=== PATIENT | male | born 1960 | race Caucasian/White ===

== ENCOUNTER 2022-08-04 11:55 | Outpatient (CLI) | payer OTHER, SELFPAY ==
--- NOTE | ~2022-08-04 | XR_ITS ---
AP and lateral views of the left hip Clinical history: Pain Findings: No acute fracture or dislocation is seen. Osseous alignment is anatomic. Left hip joint spa ce is preserved, with minimal degenerative spurring. Soft tissues are unremarkable. Impression: Minimal degenerative change left hip joint. No acute fracture or dislocation seen. Reviewed, dictated and finalized at [facility]. 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 No acute fracture or dislocation seen.
--- NOTE | ~2022-08-04 | XR_ITS ---
Lumbosacral Spine: AP and lateral views Clinical History: Pain Findings: The normal lordotic curve is maintained. The vertebral bodies and posterior elements are i ntact. The intervertebral disc spaces are preserved. Extensive anterior marginal osteophytes are pre sent. Probable mild facet joint degenerative changes in the lumbar spine. The sacroiliac joints are n ormally outlined. Impression: Probable mild facet joint degenerative changes. Extensive anterior osteophyte formation. Reviewed, dictated and finalized at location M. 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 Extensive anterior osteophyte formation.
--- NOTE | ~2022-08-04 | XR_ITS ---
AP and lateral views of the right hip Clinical history: Pain Findings: No acute fracture or dislocation is seen. Osseous alignment is anatomic. There is minimal o steophyte formation at the right hip joint. Joint space itself is preserved. Soft tissues are unremar kable. Impression: Minimal degenerative change of the right hip joint. Reviewed, dictated and finalized at location . 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
== END 2022-08-04 11:56 | disposition home or self-care (01) ==
PROVIDERS: PCP Internal Medicine; Visit Provider Internal Medicine
DX: M54.50 Low back pain, unspecified (principal); M25.78 Osteophyte, vertebrae
CPT/HCPCS: 72100; 73502

== ENCOUNTER 2022-08-21 07:41 | Outpatient (RCR) | payer OTHER, SELFPAY ==
--- NOTE | 2022-08-21 08:23 | PTOPEVAL1 ---
Assessment and note entered by Dany Hernandez Evaluation Information Assessment Status Evaluation Diagnosis lumbar radiculopathy Onset 08/04/22 Subjective Information Pt. does not recall an initial injury. 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 He describes pain going across the back and into the buttock. He reports pain will shoot down into both legs. He reports that pain is most notable with long periods of sitting and standing. He reports that pain will wake him at night. He reports that he gets about 5-6 hours of sleep a night. He reports that his goal for therapy is to decrease his pain . Reported Pain Level Pain Score 5: Self Report Assessment PT Clinical Summary Pt. is a 61 old male who enters the clinic with lumbar radiculopathy. He presents with impaired postural awareness, impaired gait, impaired l.e. strength and pain on this date. continued treatment is indicated in order to improve these areas to allow the pt. to be able to complete all IADL's with improved comfort and efficiency. Plan of Care Interventions Electrical Stimulation,Hot Pack/Cold Pack,Manual Therapy,Mechanical Traction,Neuro Re-education, Therapeutic Activities,Therapeutic Exercise,Self- Care/Home Management PT Services Indicated Yes Treatment Frequency and 2x/week x 10 visits Duration These treatments will address the objective and functional deficits as defined above. The patient will be advanced safely and appropriately in order for the patient to progress towards his/her prior level of function. Additional exercises will be introduced and as well as a comprehensive home exercise program upon discharge, if needed, ?to ensure carryover of functional gains achieved in the clinic. This treatment plan has been reviewed and agreement upon by the patient.
--- NOTE | 2022-09-25 10:56 | PTOPREEVAL ---
Assessment and note entered by Ledy Brown DPT Evaluation Information Assessment Status Re-evaluation Diagnosis lumbar radiculopathy Onset 08/04/22 Subjective Information Patient reports that since starting PT his pain is better. He states he continues to have pain with prolonged sitting and standing but does report it takes longer to set it. He does report he is able to sleep a little bit longer without onset of pain . He reports overall pain is less intense. Reported Pain Level Pain Score 3: Self Report Assessment PT Clinical Summary Patient has been for 10 visits from 08/21/22-. He has made good progress towards goals but still lacks LE strength and lumbar ROM. He has improvement with prolonged sitting and standing as well as sleeping but with increased times he has onset of pain. He reports less frequent and intense pain at this time. He would continue to benefit from skilled PT to address impairments and return to PLOF. Plan of Care Interventions Electrical Stimulation,Hot Pack/Cold Pack,Manual Therapy,Mechanical Traction,Neuro Re-education, Therapeutic Activities,Therapeutic Exercise,Self- Care/Home Management PT Services Indicated Yes Treatment Frequency and 2x/week x 8 visits Duration These treatments will address the objective and functional deficits as defined above. The patient will be advanced safely and appropriately in order for the patient to progress towards his/her prior level of function. Additional exercises will be introduced and as well as a comprehensive home exercise program upon discharge, if needed, ?to ensure carryover of functional gains achieved in the clinic. This treatment plan has been reviewed and agreement upon by the patient.
--- NOTE | 2022-12-07 16:23 | PCPTNOTE ---
Patient is being discharged at this time due to not showing up for follow up appointment
== END 2022-10-03 18:00 | disposition home or self-care (01) ==
LOC: CHSPT 07:41
PROVIDERS: PCP Internal Medicine; Visit Provider Internal Medicine
DX: M54.16 Radiculopathy, lumbar region (principal)
CPT/HCPCS: 97014; 97110; 97112; 97140; 97161; G0283

== ENCOUNTER 2024-02-11 05:58 | Day surgery (SDC) | payer OTHER, SELFPAY ==
[2024-01-15 09:06] VITALS: BMI 39.8
[2024-01-31 08:03] VITALS: BMI 37.5
[2024-02-11 06:28] VITALS: BMI 38.7
--- NOTE | 2024-02-11 06:46 | WPDANESEPPF ---
Anes - Initial Pre Proc Eval Procedure: Operation Date: 02/11/24 07:30 Proposed Procedures p Diagnostic Colonoscopy - Gee Dutton DO Date/Time: 02/11/24 06:46 Surgeon: Gee Dutton DO Pre Op Diagnosis: Blood in stool Patient Data Age: 63 Gender: M Height: 1.85 m Weight: 133.2 kg Allergies Allergy/AdvReac Type Severity Reaction Status Date / Time IVP dye Allergy Intermediate Rash Uncoded 02/11/24 06:24 Sulfonamides Allergy Intermediate Rash Uncoded 02/11/24 06:24 Home Medications Medication Instructions Recorded Confirmed Type allopurinol 100 mg tablet 100 mg PO BID 01/17/24 02/11/24 History felodipine 5 mg tablet,extended 5 mg PO HS 01/17/24 02/11/24 History release 24 hr Patient hx anesthesia problems: none Family hx anesthesia problems: none Results Review: All pre-operative results and documents have been reviewed as part of the pre-operative evaluation. [facility] Past Medical History Medical History (Updated 01/17/24 @ 10:16 by Kimber Lopez) Gout Hypertension Surgical History Surgical History (Updated 01/17/24 @ 10:00 by Alice Cazares CMA) H/O cataract extraction H/O left inguinal hernia repair Family History Family History Father Lung cancer Social History Social History (Updated 01/17/24 @ 09:49 by Alice Cazares CMA) Smoking status: Never smoker Alcohol intake: current Substance use: never Substance use type: does not use Do You Feel Safe in your Home?: Yes Lack of Transportation: No Lack of Food: Never True Current Housing: I Have Housing Concerned About Future Housing: No Difficulty Paying Gas/Electric Bills: No Difficulty Paying for Meds: No Currently Unemployed: No Education: Trade/Vocational Certificate Difficulty w/ Childcare or Family Care: No Living arrangements: with family Occupation/Education: occupation 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 Gender identity (if verbalized by the patient): Male Spiritual care concerns: No Anes - Eval Final PreProcedure Day of Procedure 02/11/24 06:46 Patient weight: obese Heart: regular rate and rhythm Lungs: clear to auscultation Airway: Mallampati scale class III and special considerations poor dentition Neurological: alert and oriented Last oral intake: >/= 8 hours ASA classification: III Emergent: no Anesthetic plan: proceed Anesthesia type and monitoring: general GIVS and standard monitoring Results Review: All pre-operative results and documents have been reviewed as part of the pre-operative evaluation. Informed Consent: The patient's anesthetic plan and its attendant risks and benefits were discussed with the patient/family/POA. Questions were solicited and answers provided to the satisfaction of the patient/family/POA.
[2024-02-11 06:49] VITALS: BP 153/90; PULSE 63; RESP 15; TEMP 36.4; O2SAT 99
[2024-02-11] MEDS: LACTATED RINGERS 1,000 ML 150 ML IV CONT (06:58)
--- NOTE | 2024-02-11 07:23 | PM.IMHP ---
H&P: HPI History of Present Illness Date/Time: 02/11/24 07:23 Chief Complaint: Blood in stool Narrative: 63 yo man presents for colonoscopy. He has a recent screening test that was positive. He thinks it was a Cologuard test. He had a colonoscopy 20 years ago that was normal. Denies seeing blood in stool. Denies fam hx colon cancer. Review of Systems Review of Systems: All systems reviewed & are unremarkable except as noted in HPI and below Constitutional: Constitutional: Denies chills, Denies fever(s), Denies headache(s) and Denies weight loss Eyes: Eyes: Denies change in vision ENT: Denies dizziness, Denies headache(s), Denies neck mass and Denies throat swelling Cardiovascular: Cardiovascular: Denies chest pain, Denies lightheadedness and Denies dyspnea Respiratory: Respiratory: Denies cough, Denies dyspnea and Denies wheezing Gastrointestinal: Gastrointestinal: Denies abdominal pain, Denies change in bowel habits, Denies nausea and Denies vomiting Genitourinary: Genitourinary: Denies hematuria and Denies dysuria Musculoskeletal: Musculoskeletal: Reports as per HPI Integumentary/Breasts: Skin/Breast: Reports as per HPI Neurologic: Denies dizziness and Denies headache(s) Allergic/Immunologic: Allergic/Immunologic: Denies throat swelling and Denies wheezing [facility] Past Medical History Medical History (Updated 02/11/24 @ 07:24 by Gee Dutton DO) Gout Hypertension Surgical History Surgical History (Updated 01/17/24 @ 10:00 by Alice Cazares CMA) H/O cataract extraction H/O left inguinal hernia repair Family History Family History Father Lung cancer Social History Social History (Updated 01/17/24 @ 09:49 by Alice Cazares CMA) Smoking status: Never smoker Alcohol intake: current Substance use: never Substance use type: does not use Do You Feel Safe in your Home?: Yes Lack of Transportation: No Lack of Food: Never True Current Housing: I Have Housing Concerned About Future Housing: No Difficulty Paying Gas/Electric Bills: No Difficulty Paying for Meds: No Currently Unemployed: No Education: Trade/Vocational Certificate Difficulty w/ Childcare or Family Care: No Living arrangements: with family Occupation/Education: occupation 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 Gender identity (if verbalized by the patient): Male Spiritual care concerns: No Meds Home Medications and Allergies Home Medications Medication Instructions Recorded Confirmed Type allopurinol 100 mg tablet 100 mg PO BID 01/17/24 02/11/24 History felodipine 5 mg tablet,extended 5 mg PO HS 01/17/24 02/11/24 History release 24 hr Allergies Allergy/AdvReac Type Severity Reaction Status Date / Time IVP dye Allergy Intermediate Rash Uncoded 02/11/24 06:24 Sulfonamides Allergy Intermediate Rash Uncoded 02/11/24 06:24 Vital Signs Vital Signs - 24 hr 02/11/24 06:49 Temperature 36.4 C Pulse Rate 63 Respiratory Rate 15 Blood Pressure 153/90 H Pulse Oximetry 99 Oxygen Delivery Room Air Exam Const: General: no acute distress and alert Orientation/consciousness: patient oriented x3 HENMT: Head: normocephalic and atraumatic Ears: hearing grossly normal bilaterally Face/Nose/Sinus: Normal nares present Mouth: Yes Normal oral and palatal mucosa present Eyes: Periorbital: periorbital findings normal Sclera: sclerae normal EOM: EOMs intact bilaterally Neck: Neck: normal visual inspection, no lymphadenopathy and trachea midline Chest: Chest palpation & inspection: normal inspection of the chest Resp: Effort & Inspection: normal respiratory effort Auscultation: clear to auscultation bilaterally Cardio: Jugular venous distension: no JVD Rate: regular rate Rhythm: regular rhythm Heart sounds: S1 normal heart sound present and S2 normal heart sound present Peripheral pulses: P
[2024-02-11 07:48] VITALS: BP 124/60; PULSE 63; RESP 16; O2SAT 93
[2024-02-11 07:58] VITALS: BP 124/75; PULSE 63; RESP 18; O2SAT 98
[2024-02-11 08:08] VITALS: BP 131/80; PULSE 60; RESP 18; O2SAT 97
--- NOTE | 2024-02-11 08:32 | WPDANESPN ---
Anes - Prog Note Post-Op Date/Time: 02/11/24 08:32 Cardiovascular status: normal Respiratory status: normal Airway patency: baseline Mental status: baseline Post-Op hydration status: normal Vital Signs: Last Vital Signs Temp 36.4 C 02/11/24 06:49 Pulse 60 02/11/24 08:08 Resp 18 02/11/24 08:08 BP 131/80 02/11/24 08:08 Pulse Ox 97 02/11/24 08:08 O2 Del Method Room Air 02/11/24 08:08 Pain Score (VAS): 0 I/O: Intake & Output 02/10/24 02/11/24 02/11/24 23:59 07:59 15:59 Intake Total 550 Balance 550 Post-procedural complaints: none Patient Feedback: Patient satisfied with anesthetic care. Other Findings: Patient vital signs back to baseline. Patient denies nausea and vomiting. Patient's pain under control. Patient OK for discharge.
== END 2024-02-11 08:20 | disposition home or self-care (01) ==
PROVIDERS: PCP Internal Medicine; Visit Provider Surgery
PROC: 0DJD8ZZ Inspection of Lower Intestinal Tract, Via Natural or Artificial Opening Endoscopic (ICD-10-PCS; CPT 45378; principal; 2024-02-11 07:30)
DX: K92.1 Melena (principal); D12.8 Benign neoplasm of rectum; K57.30 Diverticulosis of large intestine without perforation or abscess without bleeding
CPT/HCPCS: 45380

== ENCOUNTER 2024-02-12 08:49 | Outpatient (NON) | payer OTHER, SELFPAY | END 2024-02-12 08:50 | disposition home or self-care (01) | PROVIDERS: PCP Internal Medicine; Visit Provider Surgery | DX: K92.1 Melena (principal); K63.5 Polyp of colon | CPT/HCPCS: 88305 ==

== ENCOUNTER 2025-07-01 11:14 | Emergency (ER) | payer BC, SELFPAY ==
--- NOTE | ~2025-07-01 | CT_ITS ---
CT ABDOMEN AND PELVIS WITHOUT CONTRAST Clinical History: Diverticulitis, kidney stone, constipation Comparison: None Technique: Unenhanced axial images lung bases to symphysis pubis Coronal, sagittal reformats CT images acquired with automatic exposure control for dose reduction DLP: 1058 mGy-cm Findings: Without intravenous contrast, sensitivity for detecting visceral parenchymal abnormalities decreased. Lung bases: Mediastinal and hilar calcifications. Visualized heart and pericardium: Unremarkable. Liver: Unremarkable. Gallbladder: Unremarkable. Spleen: Unremarkable. Pancreas: Unremarkable. Adrenal glands: Unremarkable. Kidneys: Right kidney- Hydronephrosis. A few stones, largest 9 mm. 6 mm stone distal ureter. Left kidney- No hydronephrosis. No renal stones. Several large cortical defects. Upper pole cyst. Distal esophagus/stomach: Distal esophageal wall thickening. Small bowel loops: Normal caliber and wall thickness. Colon: Foci sigmoid wall thickening. Diverticula. Normal RLQ appendix. Nodes: No enlarged nodes. Peritoneum: No ascites. No free intraperitoneal air. Urinary bladder: Unremarkable. Prostate: Prominent. Bones: No acute bony abnormality. Soft tissues: Right inguinal hernia with fat. Unopacified abdominal aorta: No aneurysmal dilatation. IMPRESSION: 1. Sigmoid wall thickening likely chronic diverticular disease but recommend colonoscopy to exclude lesion. No diverticulitis. 2. Hydronephrosis right kidney from 6 mm distal ureteral stone. Additional intrarenal stones right kidney. 3. Additional findings as above. Reviewed, dictated and finalized at location R. [facility] MA[facility] IMPRESSION: 1. Sigmoid wall thickening likely chronic diverticular disease but recommend c olonoscopy to exclude lesion. No diverticulitis. 2. Hydronephrosis right kidney from 6 mm distal ureteral stone. Additional int rarenal stones right kidney. 3. Additional findings as above.
[2025-07-01 11:16] VITALS: BP 149/95; PULSE 69; RESP 18; TEMP 36.4; O2SAT 97
--- NOTE | 2025-07-01 11:28 | ED.ABDPAIN ---
HPI - Abdominal Pain General Chief Complaint: Urogenital-Male Stated Complaint: rt. side flank pain Time Seen by Provider: 07/01/25 11:28 Source: patient and family Mode of arrival: ambulatory Limitations: no limitations History of Present Illness HPI narrative: Abdominal pain, dull aching, intermittent for the last 2 days, mid abdomen, sometime radiating to right flank, possible constipation, received stool softener with good bowel movement yesterday and pain is back again today, patient denies any fever, chills, nausea, vomiting. History of hypertension and kidney stone. Patient had ibuprofen prior to arrival. Related Data Home Medications ?Medication ?Instructions ?Recorded ?Confirmed ?Last Taken ?Type allopurinol 100 mg tablet 100 mg PO BID 01/17/24 02/11/24 02/09/24 History felodipine 5 mg tablet,extended 5 mg PO HS 01/17/24 02/11/24 02/10/24 20:00 History release 24 hr Allergies Allergy/AdvReac Type Severity Reaction Status Date / Time IVP dye Allergy Intermediate Rash Uncoded 07/01/25 11:22 Sulfonamides Allergy Intermediate Rash Uncoded 02/11/24 06:24 Review of Systems Review of Systems: All systems reviewed & are unremarkable except as noted in HPI and below PMFSH Past Medical History Medical History Hypertension Gout Surgical History Surgical History H/O cataract extraction H/O left inguinal hernia repair Family History Family History Father Lung cancer Social History Social History Smoking status: Never smoker Alcohol intake: current Substance use: never Substance use type: does not use Lack of Transportation: No Lack of Food: Never True Current Housing: I Have Housing Concerned About Future Housing: No Difficulty Paying Gas/Electric Bills: No Difficulty Paying for Meds: No Currently Unemployed: No Education: Trade/Vocational Certificate Difficulty w/ Childcare or Family Care: No Living arrangements: with family Occupation/Education: occupation 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, no gross motor deficit Course Vital Signs Vital signs: Vital Signs Temperature 36.4 C 07/01/25 11:16 Pulse Rate 69 07/01/25 11:16 Respiratory Rate 18 07/01/25 11:16 Blood Pressure 149/95 H 07/01/25 11:16 Pulse Oximetry 97 07/01/25 11:16 Oxygen Delivery Room Air 07/01/25 11:16 Temperature 36.7 C 07/01/25 13:36 Pulse Rate 68 07/01/25 13:36 Respiratory Rate 17 07/01/25 13:36 Blood Pressure 149/83 H 07/01/25 13:36 Pulse Oximetry 99 07/01/25 13:36 Oxygen Delivery Room Air 07/01/25 13:36 MDM - Abdominal Pain MDM Narrative Medical decision making narrative: Patient presents with abdominal pain for the last 2 days Vital signs are stable Physical examination mild tenderness right lower quadrant otherwise insignificant Differential diagnosis include kidney stone, urinary tract infection, diverticulitis, colitis, pancreatitis, constipation Blood workup today includes CBC, CMP, lipase showed WBC 13.6, creatinine 1.7, lipase 1029. No old records available for comparison Urinalysis showed no significant finding except of trace of blood CT abdomen and pelvis with out contrast showed diverticular disease, 6 mm distal right ureter stone with hydronephrosis Patient had blood in the stool on February 2024, subsequently patient had colonoscopy he which showed rectal polyps, diverticulosis without perforation or abscess without bleeding Currently patient is asymptomatic, denying any pain or nausea or vomiting. Diagnosis: Kidney stone, diverticular disease renal insufficiency of unknown duration. Patient was advised to follow-up with his family physician within 5 days to compare the result of the blood workup today compared to the past. Also was advised to call urologist for follow-up. The pt was discharged to home.the pt,s condition upon discharge was fair,education was provided to the pt in reference to the final impression,discharge study results,treatment,prognosis and need for follow up . Differential Diagnosis Differential diagnosis: Likely other (As above) Lab Data Attestation: I reviewed the patient's lab results. 07/01/25 11:41 07/01/25 11:41 Labs: Lab Results 07/01/25 07/01/25 Range/Units 11:35 11:41 WBC 13.6 H (4.8-10.8) K/mm3 RBC 4.63 L (4.70-6.10) M/mm3 Hgb 15.1 (12.4-15.3) g/dL Hct 44.1 (37.0-46.0) % MCV 95.2 (78.0-102.0) fL MCH 32.6 H (27.0-31.0) pg MCHC 34.2 (32-36) g/dL RDW 13.7 (11.6-14.4) % Plt Count 219 (150-420) K/mm3 MPV 10.0 (8.7-11.0) fl Immature Gran % (Auto) 0.6 H (0.0-0.0) % Neut % (Auto) 81.6 H (50.0-70.0) % Lymph % (Auto) 10.4 L (18.0-42.0) % [place] % (Auto) 6.0 (2.0-11.0) % Eos % (Auto) 1.0 (1.0-6.0) % Baso % (Auto) 0.4 (0.0-1.0) % Lymph # (Auto) 1.41 (1.10-4.50) K/mm3 [place] # (Auto) 0.81 (0.10-0.90) K/mm3 Eos # (Auto) 0.13 (0.02-0.50) K/mm3 Baso # (Auto) 0.05 (0.00-0.10) K/mm3 Abs Immat Gran (auto) 0.08 H (0.00-0.00) K/mm3 Absolute Neuts (auto) 11.08 H (1.70-7.20) K/mm3 Absolute Nucleated RBC 0.00 (0.00-0.00) K/mm3 Nucleated RBC % 0.0 (0-0.0) % Sodium 142 (137-145) mmol/L Potassium 4.5 (3.4-5.0) mmol/L Chloride 109 H (98-107) mmol/L Carbon Dioxide 22 (22-30) mmol/L Anion Gap 11 (4-12) mmol/L BUN 20 (9-20) mg/dL Creatinine 1.75 H (0.7-1.3) mg/dL Estim Creat Clear Calc 54 ml/min Estimated GFR 39 L (59 - ) Glucose 124 H (65-110) mg/dL Calculated Osmolality 297 H (285-295) mOsm/kg Calcium 9.5 (8.4-10.2) mg/dL Total Bilirubin 1.0 (0.2-1.3) mg/dL AST 34 (17-59) U/L ALT 32 (6-50) U/L Alkaline Phosphatase 92 (38-126) U/L Total Protein 7.8 (6.3-8.2) g/dL Albumin 4.4 (3.5-5.1) g/dL Lipase 1029 H (23-300) U/L Urine Color Light yellow (Yellow) Urine Appearance Clear (Clear) Urine pH 5.5 (5.0-8.0) Ur Specific [place] 1.020 (1.010-1.020) Urine Protein Negative (Negative) Urine Glucose (UA) Negative (Negative) Urine Ketones Negative (Negative) Ur Blood (Man) Trace-intact H (Negative) Urine Nitrate Negative (Negative) Urine Bilirubin Negative (Negative) Urine Urobilinogen 0.2 (0.2-1.0) mg/dL Leukocyte Esterase Rfl Negative (Negative) JAMISON/UL Imaging Data Radiologist's impression: ITS Impressions Abdomen/Pelvis CT 07/01/25 12:27 IMPRESSION: 1. Sigmoid wall thickening likely chronic diverticular disease but recommend colonoscopy to exclude lesion. No diverticulitis. 2. Hydronephrosis right kidney from 6 mm distal ureteral stone. Additional intrarenal stones right kidney. 3. Additional findings as above. Critical Care Time Critical Care Time Critical Care Time: No Discharge Plan Discharge Clinical Impression: Kidney stone on right side, Renal insufficiency, Diverticulosis Patient Disposition: Home Condition: Stable Instructions: Diverticulosis (DC), Kidney Stones (ED), How to Strain Your Urine (ED) Additional Instructions: Return if symptoms are worsening , call your family physician for appointment and urologist, take Tylenol as as needed for aches and pain, continue home medications. Encourage fluid intake Contact family physician for blood workup in 3-5 days to compare with blood workup today. Your creatinine today is 1.7, your lipase today 1025. Call urologist for follow-up Patient Language: Icelandic Prescriptions: New tamsulosin [Flomax] 0.4 mg capsule 0.4 mg PO DAILY Qty: 10 0RF hydrocodone-acetaminophen 5-325 mg tablet 1 tablet PO Q4H Qty: 20 0RF ondansetron HCl 4 mg tablet 4 mg PO TID PRN (Reason: nausea and vomiting) 3 Days Qty: 10 0RF No Action allopurinol 100 mg tablet 100 mg PO BID felodipine 5 mg tablet extended release 24 hr 5 mg PO HS Follow-up/Referrals: Kiran Tapia MD [Primary Care Provider, Internal Medicine] Mohamud Naranjo MD [Physician, Urology] - 07/03/25
[2025-07-01 11:30] VITALS: BP 158/86; PULSE 66; RESP 18; O2SAT 99
[2025-07-01 11:45] LABS: Add Urine Microscopic? NO; Appearance Urine Clear (Clear); Glucose Urine UA Negative (Negative); Leukocyte Esterase Ur Negative LEU/UL (Negative); Nitrate Urine Negative (Negative); Specific Grav Ur 1.020 (1.010-1.020)
[2025-07-01] MEDS: SODIUM CHLORIDE 0.9% IV 1,000 ML 999 ML IV CONT (11:50)
[2025-07-01] MEDS: LORazepam (*CRX) 1 MG TABLET PO (11:50)
[2025-07-01 11:53] LABS: Hematocrit 44.1 % (37.0-46.0); Hemoglobin 15.1 g/dL (12.4-15.3); Immature Granulocyte Percent A 0.6 % (0.0-0.0); Lymphocytes Absolute Auto 1.41 K/mm3 (1.10-4.50); Mean Corpuscular HGB Conc 34.2 g/dL (32-36); Mean Corpuscular Hemoglobin 32.6 pg (27.0-31.0); Mean Corpuscular Volume 95.2 fL (78.0-102.0); Nucleated Red Blood Cells Absolute Auto 0.00 K/mm3 (0.00-0.00); Nucleated Red Blood Cells Perc 0.0 % (0-0.0); Platelet Count Result 219 K/mm3 (150-420); Red Blood Count 4.63 M/mm3 (4.70-6.10); White Blood Count 13.6 K/mm3 (4.8-10.8)
--- OUTSIDE RECORDS SUMMARY | 2025-07-01 11:55 | XMS_ITS | Clinical Summary ---
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 Name Role Phone Unavailable Primary Care Provider Unavailabl e Social History Tobacco Use Types Packs/Day Years Used Date Smoking Tobacco: Never Assessed Sex and Gender Information Value Date Recorded Sex Assigned at Not on file Legal Sex Male 9:32 PM CDT Gender Identity Not on file Sexual Orientation Not on file Plan of Treatment Health Maintenance Due Date Last Done Comments Colorectal Cancer Screening Colonoscopy (10 Years) 1958 Hepatitis C 1976 DTaP, Tdap and Td Vaccines ( 1 - Tdap) 1977 Pneumococcal Vaccine: 50+ Ye ars (1 of 1 - PCV) 2008 Zoster Vaccines (1 of 2) 2008 COVID-19 Vaccine (1 - 2024-2 6 season) 2025 Influenza Adult (#1) 2025 RSV Immunization or 60+ Years (1 - 1-dose 75+ series) 2033 Hepatitis A Vaccines Aged Out No long er eligible based on patient's age to complete this topic Meningococcal B Vaccine Aged Out No l onger eligible based on patient's age to complete this topic Meningococcal Vaccine Aged Out No jeannine aleta eligible based on patient's age to complete this topic RSV Immunizations Under 20 Months Aged Out No longer eligible based on patient's age to complete this topic
--- OUTSIDE RECORDS SUMMARY | 2025-07-01 11:55 | XMS_ITS | Encounter Summary ---
Author Organization [facility] Address [address] [place] [address] Care Team Providers Care Ep Specialist Name Role Phone Unavailable Primary Care Provider Unavailabl e Encounter Details Date Type Department Care Team (Latest Contact Info) Description 04/18/2006 Outpatient Historical [facility] 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
--- OUTSIDE RECORDS SUMMARY | 2025-07-01 11:55 | XMS_ITS | Clinical Summary ---
Author Organization [employer] Address [address] 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
--- OUTSIDE RECORDS SUMMARY | 2025-07-01 11:55 | XMS_ITS | Encounter Summary ---
Author Organization [facility] Address [address] [place] [address] Care Team Providers Care Boiler Coverer Helper Name Role Phone Unavailable Primary Care Provider Unavailabl e Encounter Details Date Type Department Care Team (Latest Contact Info) Description 11/06/2006 Outpatient Historical [facility] Medicine [address] [phone] Manuel Barbosa MD NO ADDRESS ON FILE Health Examination of Defined Subpopulation (Primary Dx) Social History Tobacco Use Types Packs/Day Years Used Date Smoking Tobacco: Never Assessed Sex and Gender Information Value Date Recorded Sex Assigned at Not on file 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
--- OUTSIDE RECORDS SUMMARY | 2025-07-01 11:55 | XMS_ITS | Encounter Summary ---
Author Organization [facility] Address [address] [place] [address] Care Team Providers Care Data Analytics Chief Scientist Name Role Phone Unavailable Primary Care Provider Unavailabl e Encounter Details Date Type Department Care Team (Latest Contact Info) Description 01/16/2006 Outpatient Historical [facility] Medicine [address] [phone] Sid Tran MD NO ADDRESS ON FILE Health Examination of Defined Subpopulation (Primary Dx) Social History Tobacco Use Types Packs/Day Years Used Date Smoking Tobacco: Never Assessed Sex and Gender Information Value Date Recorded Sex Assigned at Not on file 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
[2025-07-01 12:00] VITALS: BP 144/87; PULSE 64; RESP 18; O2SAT 99
[2025-07-01 12:07] LABS: Alanine Aminotransferase 32 U/L (6-50); Albumin Level 4.4 g/dL (3.5-5.1); Alkaline Phosphatase 92 U/L (38-126); Anion Gap 11 mmol/L (4-12); Aspartate Amino Transferase 34 U/L (17-59); Bilirubin,Total 1.0 mg/dL (0.2-1.3); Blood Urea Nitrogen 20 mg/dL (9-20); Calcium 9.5 mg/dL (8.4-10.2); Carbon Dioxide 22 mmol/L (22-30); Chloride 109 mmol/L (98-107); Estimated CRCL calculation 54 ml/min; Estimated Glomerular Filt Rate 39; Glucose 124 mg/dL (65-110); Lipase 1029 U/L (23-300); Osmolality Calculated 297 mOsm/kg (285-295); Potassium 4.5 mmol/L (3.4-5.0); Sodium 142 mmol/L (137-145); Total Protein 7.8 g/dL (6.3-8.2)
--- OUTSIDE RECORDS SUMMARY | 2025-07-01 12:27 | XMS_ITS | Encounter Summary ---
Author Organization [facility] Address [address] [place] [address] Care Team Providers Care Redeye Gunner Name Role Phone Unavailable Primary Care Provider Unavailabl e Encounter Details Date Type Department Care Team (Latest Contact Info) Description 01/16/2006 Outpatient Historical [facility] Medicine [address] [phone] Sid Tran MD NO ADDRESS ON FILE Health Examination of Defined Subpopulation (Primary Dx) Social History Tobacco Use Types Packs/Day Years Used Date Smoking Tobacco: Never Assessed Sex and Gender Information Value Date Recorded Sex Assigned at Not on file 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
--- OUTSIDE RECORDS SUMMARY | 2025-07-01 12:27 | XMS_ITS | Clinical Summary ---
Author Organization [employer] Address [address] 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
--- OUTSIDE RECORDS SUMMARY | 2025-07-01 12:27 | XMS_ITS | Encounter Summary ---
Author Organization [facility] Address [address] [place] [address] Care Team Providers Care Sleever Name Role Phone Unavailable Primary Care Provider Unavailabl e Encounter Details Date Type Department Care Team (Latest Contact Info) Description 04/18/2006 Outpatient Historical [facility] Medicine 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
--- OUTSIDE RECORDS SUMMARY | 2025-07-01 12:27 | XMS_ITS | Encounter Summary ---
Author Organization [facility] Address [address] [place] [address] Care Team Providers Care Inside Sales Recruiter Name Role Phone Unavailable Primary Care Provider Unavailabl e Encounter Details Date Type Department Care Team (Latest Contact Info) Description 11/06/2006 Outpatient Historical [facility] Medicine [address] [phone] Manuel Barbosa MD NO ADDRESS ON FILE Health Examination of Defined Subpopulation (Primary Dx) Social History Tobacco Use Types Packs/Day Years Used Date Smoking Tobacco: Never Assessed Sex and Gender Information Value Date Recorded Sex Assigned at Not on file 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
[2025-07-01 12:45] VITALS: BP 149/79; PULSE 67; RESP 18; O2SAT 99
[2025-07-01 13:30] VITALS: BP 149/83; PULSE 68; RESP 17; O2SAT 99
[2025-07-01 13:36] VITALS: BP 149/83; PULSE 68; RESP 17; TEMP 36.7; O2SAT 99
== END 2025-07-01 13:36 | disposition home or self-care (01) ==
PROVIDERS: Emergency Provider Emergency Medicine; PCP Internal Medicine
DX: N20.0 Calculus of kidney (principal); N28.9 Disorder of kidney and ureter, unspecified; K57.90 Diverticulosis of intestine, part unspecified, without perforation or abscess without bleeding; I10 Essential (primary) hypertension
CPT/HCPCS: 36415; 74176; 80053; 81003; 83690; 85025; 96360; 99284; A9270; J7030

== ENCOUNTER 2025-07-13 07:42 | Outpatient (CLI) | payer BC, SELFPAY ==
--- NOTE | ~2025-07-13 | US_ITS ---
EXAMINATION: US renal BI, 07/13/2025 7:53 VAULT CASHIER HISTORY: hydronephrpsis,obs uropathy,R hydronephrosis Comparison: None Technique: Penaloza-scale and color Doppler images were obtained. Findings: KIDNEYS: The renal cortices demonstrate thinning of the left renal cortex with increased echogenicity, no solid masses or hydronephrosis. Right Kidney: Right kidney midpole calculus 1.3 x 1.4 cm, no hydronephrosis. Right kidney measures 14.2 x 5.2 x 6.3 cm. Left Kidney: Left kidney superior pole simple cyst 4.2 x 3.2 cm, mid pole calculus 8 x 7 mm, no hydronephrosis. Left kidney 10.1 x 4 x 5 cm. Bladder: There is no bladder wall thickening, bladder calculus measures 9 mm. . Impression: 1. Bilateral renal calculi, no hydronephrosis. 2. Medical renal disease of the left kidney. 3. Bladder calculus Reviewed, dictated and finalized at location P. T CASHIER Impression: 1. Bilateral renal calculi, no hydronephrosis. 2. Medical renal disease of the left kidney. 3. Bladder calculus
== END 2025-07-13 07:43 | disposition home or self-care (01) ==
PROVIDERS: PCP Internal Medicine; Visit Provider Internal Medicine
DX: N20.0 Calculus of kidney (principal); N13.9 Obstructive and reflux uropathy, unspecified; N21.0 Calculus in bladder; N28.89 Other specified disorders of kidney and ureter
CPT/HCPCS: 76770